=== PATIENT | female | born 1995 | race Asian ===

== ENCOUNTER 2019-12-04 01:09 | Emergency (ER) | payer OTHER ==
[~2019-12-04] VITALS: Ht 152.4 cm; Wt 50.0 kg
[2019-12-04] MEDS ORDERED: DiphenhydrAMINE HCL 25 MG CAPSULE PO ONE (02:15)
[2019-12-04] MEDS ORDERED: DEXAMETHASONE 4 MG TABLET PO ONE (02:15)
[2019-12-04] MEDS ORDERED: FAMOTIDINE 20 MG TABLET PO ONE (02:15)
[2019-12-04 04:30] VITALS: BP 115/62
== END 2019-12-04 05:13 | disposition home or self-care (01) ==
LOC: EMS 01:17
DX: T78.40XA Allergy, unspecified, initial encounter (principal); F17.200 Nicotine dependence, unspecified, uncomplicated; X58.XXXA Exposure to other specified factors, initial encounter
CPT/HCPCS: 99284; J8540